=== PATIENT | female | born 1985 | race Caucasian/White ===

== ENCOUNTER 2017-05-14 21:23 | Emergency (ER) | payer MEDICAID ==
[~2017-05-14] VITALS: Ht 175.3 cm; Wt 71.4 kg
[~2017-05-14 21:23] MED LIST: CYCL-1 PO; HYDR50CA PO; ONDA4SOL2 PO; ONDA8TAB6 PO; ZIPR20CA2 PO
[2017-05-14 22:30] VITALS: BP 131/82
== END 2017-05-14 22:32 | disposition home or self-care (01) ==
LOC: ER 21:24
DX: N93.9 Abnormal uterine and vaginal bleeding, unspecified (principal); G43.909 Migraine, unspecified, not intractable, without status migrainosus; Z79.899 Other long term (current) drug therapy
CPT/HCPCS: 99281

== ENCOUNTER 2022-05-18 14:43 | Emergency (ER) | payer MEDICAID | END 2022-05-18 16:35 | disposition left against medical advice (07) | LOC: ER 14:44 | DX: Z00.8 Encounter for other general examination (principal); Z53.21 Procedure and treatment not carried out due to patient leaving prior to being seen by health care provider ==

== ENCOUNTER 2022-05-18 19:31 | Emergency (ER) | payer MEDICAID ==
[~2022-05-18] VITALS: Ht 175.3 cm; Wt 65.9 kg
[2022-05-18 20:15] VITALS: BP 124/90
== END 2022-05-18 21:59 | disposition home or self-care (01) ==
LOC: ER 19:31
DX: O46.8X1 Other antepartum hemorrhage, first trimester (principal); G43.909 Migraine, unspecified, not intractable, without status migrainosus; F31.9 Bipolar disorder, unspecified; F17.200 Nicotine dependence, unspecified, uncomplicated; Z79.899 Other long term (current) drug therapy
CPT/HCPCS: 36415; 84702; 99283

== ENCOUNTER 2023-05-12 19:38 | Emergency (ER) | payer MEDICAID ==
[~2023-05-12] VITALS: Ht 167.6 cm; Wt 78.4 kg
[2023-05-12 19:54] VITALS: BP 138/83; PULSE 98; TEMP 98.1; O2SAT 98
[2023-05-12] MEDS ORDERED: HYDR-3965 PO (21:13)
[2023-05-12 21:41] VITALS: RESP 16
[2023-05-12] MEDS: ketorolac trometh inj. 60 MG/2 ML VIAL IM ONE (21:41)
== END 2023-05-12 22:07 | disposition home or self-care (01) ==
LOC: ER 19:39
DX: S93.402A Sprain of unspecified ligament of left ankle, initial encounter (principal); G43.909 Migraine, unspecified, not intractable, without status migrainosus; F31.9 Bipolar disorder, unspecified; Z79.899 Other long term (current) drug therapy; X50.1XXA Overexertion from prolonged static or awkward postures, initial encounter; Y93.89 Activity, other specified; Y92.89 Other specified places as the place of occurrence of the external cause; Y99.8 Other external cause status
CPT/HCPCS: 73590; 73610; 73630; 96372; 99284; J1885

== ENCOUNTER 2023-12-10 15:47 | Emergency (ER) | payer MEDICAID ==
[~2023-12-10] VITALS: Ht 175.3 cm; Wt 72.7 kg
[2023-12-10] MEDS ORDERED: HYDR-3972 PO (18:37)
[2023-12-10] MEDS ORDERED: HYDR-3973 PO (18:39)
[2023-12-10 19:01] VITALS: BP 120/92; PULSE 65; RESP 18; TEMP 98.6; O2SAT 99
== END 2023-12-10 19:03 | disposition home or self-care (01) ==
LOC: ER 15:47
DX: S83.92XA Sprain of unspecified site of left knee, initial encounter (principal); S93.401A Sprain of unspecified ligament of right ankle, initial encounter; G43.909 Migraine, unspecified, not intractable, without status migrainosus; F41.9 Anxiety disorder, unspecified; F32.A Depression, unspecified; Z79.899 Other long term (current) drug therapy; W19.XXXA Unspecified fall, initial encounter; Y93.89 Activity, other specified; Y92.89 Other specified places as the place of occurrence of the external cause; Y99.8 Other external cause status
CPT/HCPCS: 20610; 73564; 73610; 99284; A6449

== ENCOUNTER 2024-04-10 17:52 | Emergency (ER) | payer OTHER, MEDICAID ==
[~2024-04-10] VITALS: Ht 172.7 cm; Wt 72.4 kg
[2024-04-10 17:53] VITALS: BP 113/80; PULSE 84; RESP 16; O2SAT 98
[2024-04-10] MEDS ORDERED: CYCL-1 PO (19:14)
[2024-04-10 19:16] VITALS: TEMP 97.8
== END 2024-04-10 19:22 | disposition home or self-care (01) ==
LOC: ER 17:53
DX: M43.6 Torticollis (principal); F31.9 Bipolar disorder, unspecified; F41.9 Anxiety disorder, unspecified; G43.909 Migraine, unspecified, not intractable, without status migrainosus; F17.210 Nicotine dependence, cigarettes, uncomplicated; Y90.9 Presence of alcohol in blood, level not specified
CPT/HCPCS: 99283

== ENCOUNTER 2024-04-24 17:55 | Emergency (ER) | payer MEDICAID, OTHER ==
[~2024-04-24] VITALS: Ht 172.7 cm; Wt 60.2 kg
[2024-04-24 18:26] VITALS: BP 129/65; PULSE 101; TEMP 98.8; O2SAT 98
[2024-04-24] MEDS ORDERED: CYCL-1 PO (21:12)
[2024-04-24] MEDS ORDERED: LIDO700A32 TOP (21:12)
[2024-04-24] MEDS ORDERED: IBUP-1984 PO (21:12)
[2024-04-24 21:13] VITALS: RESP 16
[2024-04-24] MEDS: ketorolac trometh 15mg/ml vial 15 MG/ML ML IM ONE (21:13)
[2024-04-24] MEDS: LIDOcaine 5% patch TP ONE (21:14)
== END 2024-04-24 21:17 | disposition home or self-care (01) ==
LOC: ER 17:55
DX: M54.2 Cervicalgia (principal); M54.50 Low back pain, unspecified; G43.909 Migraine, unspecified, not intractable, without status migrainosus; F31.9 Bipolar disorder, unspecified; G89.29 Other chronic pain; Z79.899 Other long term (current) drug therapy; V89.2XXA Person injured in unspecified motor-vehicle accident, traffic, initial encounter; Y93.89 Activity, other specified; Y92.89 Other specified places as the place of occurrence of the external cause; Y99.8 Other external cause status
CPT/HCPCS: 96372; 99283; J1885

== ENCOUNTER 2024-07-04 10:14 | Emergency (ER) | payer SELFPAY ==
[~2024-07-04] VITALS: Ht 172.7 cm; Wt 73.8 kg
[~2024-07-04 10:14] MED LIST changes: +LIDO700A32 TOP
[2024-07-04 10:18] VITALS: BP 119/81; PULSE 91; RESP 16; O2SAT 100
[2024-07-04] MEDS ORDERED: HYDR-3973 PO (12:38)
[2024-07-04] MEDS ORDERED: CYCL-1 PO (12:38)
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
[2024-07-04 12:46] VITALS: TEMP 97
== END 2024-07-04 12:49 | disposition home or self-care (01) ==
LOC: ER 10:15
DX: M54.2 Cervicalgia (principal); G43.909 Migraine, unspecified, not intractable, without status migrainosus; F32.A Depression, unspecified; V89.2XXA Person injured in unspecified motor-vehicle accident, traffic, initial encounter; Y93.89 Activity, other specified; Y92.89 Other specified places as the place of occurrence of the external cause; Y99.8 Other external cause status
CPT/HCPCS: 99283

== ENCOUNTER 2024-07-16 17:03 | Emergency (ER) | payer OTHER ==
[~2024-07-16] VITALS: Ht 167.6 cm; Wt 61.2 kg
[2024-07-16 17:26] VITALS: BP 136/78; PULSE 95; RESP 15; TEMP 97.6; O2SAT 100
--- NOTE | 2024-07-16 17:50 | RADIOLOGY REPORT ---
EXAM: DI KNEE, COMP 4 VW MIN HISTORY: KNEE PAIN RIGHT COMPARISON: DI KNEE, COMP 4 VW MIN on DOS: 12/10/23 TECHNIQUE: Four views of the right knee were performed. FINDINGS: No fracture or significant degenerative changes are identified about the right knee. No lateral [place] tilt or subluxation on the sunrise view. No evidence of significant joint effusion. IMPRESSION: 1. Unremarkable radiographs of the right knee.
[2024-07-16] MEDS ORDERED: IBUP-1986 PO (20:53)
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
== END 2024-07-16 20:58 | disposition home or self-care (01) ==
LOC: ER 17:04
DX: M25.561 Pain in right knee (principal); F41.9 Anxiety disorder, unspecified; F31.9 Bipolar disorder, unspecified; G43.909 Migraine, unspecified, not intractable, without status migrainosus
CPT/HCPCS: 73564; 99283

== ENCOUNTER 2024-08-03 16:51 | Emergency (ER) | payer OTHER ==
[~2024-08-03] VITALS: Ht 172.7 cm; Wt 70.5 kg
[~2024-08-03 16:51] MED LIST changes: +IBUP-1986 PO
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
[2024-08-03] MEDS ORDERED: IBUP-1984 PO (17:52)
[2024-08-03] MEDS ORDERED: HYDR-3965 PO (17:52)
[2024-08-03 18:02] VITALS: BP 127/68; PULSE 65; RESP 16; TEMP 98.6; O2SAT 97
--- NOTE | 2024-08-03 18:23 | RADIOLOGY REPORT ---
CLINICAL INFORMATION: 39 years old, Female; KNEE PAIN. TECHNIQUE: 3 views of the right knee were obtained. COMPARISON: DI KNEE, COMP 4 VW MIN on DOS: 07/16/24, DI KNEE, COMP 4 VW MIN on DOS: 12/10/23 FINDINGS: No acute fracture or dislocation. [id number] joint space narrowing of the medial comp artment. No focal soft tissue swelling. No significant joint effusion. IMPRESSION: 1. No evidence of acute bony abnormality. 2. Nonacute findings as described above.
== END 2024-08-03 18:00 | disposition home or self-care (01) ==
LOC: ER 16:51
DX: M25.561 Pain in right knee (principal); F31.9 Bipolar disorder, unspecified; F41.9 Anxiety disorder, unspecified
CPT/HCPCS: 29505; 73564; 99283